=== PATIENT | male | born 1970 | race Asian ===

== ENCOUNTER → 2016-12-26 | Outpatient (CLI) | payer OTHER | LOC: CLAB 09:19 → CIMAGING 09:24 → EDSTATUS 09:24 | PROVIDERS: ATTEND Family Medicine | DX: R05 Cough (principal); R63.4 Abnormal weight loss | CPT/HCPCS: 71020-PO ==

== ENCOUNTER → 2016-12-29 | Outpatient (CLI) | payer OTHER | LOC: CIMAGING 08:01 | PROVIDERS: ATTEND Family Medicine | DX: K76.0 Fatty (change of) liver, not elsewhere classified (principal); R74.8 Abnormal levels of other serum enzymes | CPT/HCPCS: 76705-PO ==